=== PATIENT | male | born 1945 | race Caucasian/White ===

== ENCOUNTER → 2016-12-07 | Outpatient (REF) ==
[~2016-12-07] MED LIST: AMLOPIDINE; AMOXICILLIN125 MG; ASPIRIN 81M81 MG/TA2 PO; CARDURA4 MG PO; CENTRUM1 TAB PO; COZAAR 50MG50 MG/TAB PO; CRESTOR20 MG PO; FERROUS SULFATE65 MG PO; FISH OIL CONC1000 MG PO; GLUCOPHAGE500 MG/TAB PO; LESCOL XL PO; LORTAB 5/500 501 TAB PO; LYRICA; NIASPAN1000 MG PO; NOVOLIN 70/30 IN3 ML SC; NOVOLOGMIX70/30 SC; PRILOSEC 20MG20 MG PO
== END ==
LOC: ZLAB.WCH 19:02
DX: Z01.89 Encounter for other specified special examinations (principal)
CPT/HCPCS: G0103

== ENCOUNTER → 2017-09-08 | Outpatient (REF) | LOC: ZLAB.WCH 17:29 | DX: Z01.89 Encounter for other specified special examinations (principal) | CPT/HCPCS: G0103 ==

== ENCOUNTER → 2018-01-05 | Outpatient (REF) ==
[~2018-01-05] MED LIST changes: +CANA100T PO; +CEPHALEXIN500 M1 PO; +COZAAR 25MG25 MG/TAB PO; +FERROUS SU325 MG/TAB PO; +LYRICA 75MG CAP75 MG PO; +MASON NATURAL1200 MG PO; +MULTI VITAMINS1 TAB PO; +NOVOLIN 70/30 710 ML SQ; +NOVOLOGMIX70/30 SQ; +OMNICEF 300MG300 MG PO; +TYLENOL 500MG500 MG PO; +VESICARE 5MG5 MG PO
== END ==
LOC: ZLAB.WCH 08:30
DX: Z01.89 Encounter for other specified special examinations (principal)

== ENCOUNTER → 2018-05-30 | Outpatient (REF) | LOC: ZLAB.WCH 19:12 | DX: Z01.89 Encounter for other specified special examinations (principal) | CPT/HCPCS: G0103 ==

== ENCOUNTER → 2018-06-12 | Outpatient (CLI) | payer MEDICARE, OTHER | LOC: COL.RAD 10:31 | DX: N13.1 Hydronephrosis with ureteral stricture, not elsewhere classified (principal) | CPT/HCPCS: A9562 ==

== ENCOUNTER → 2018-10-25 | Outpatient (CLI) | payer MEDICARE, OTHER | LOC: COL.RAD 13:30 | DX: Z01.812 Encounter for preprocedural laboratory examination (principal); C64.2 Malignant neoplasm of left kidney, except renal pelvis; N28.89 Other specified disorders of kidney and ureter; Z90.49 Acquired absence of other specified parts of digestive tract; Z85.46 Personal history of malignant neoplasm of prostate | CPT/HCPCS: Q9967 ==